=== PATIENT | male | born 1950 | race Caucasian/White ===

== ENCOUNTER → 2023-07-12 07:21 | Outpatient (REF) | payer MEDICARE, SELFPAY ==
[2023-07-12 08:08] LABS: % Basophils 0.4 % (0-2); % Eosinophils 3.7 % (0-6); % Immature Granulocytes 0.2 % (0-0.5); % Lymphocytes 46.3 % (20.5-51.1); % Monocytes 6.7 % (1.7-9.3); % Neutrophils 42.7 % (42.2-75.2); Absolute Eosinophils 0.4 10^3/uL (0-0.7); Absolute Lymphocytes 4.7 10^3/uL (1.2-3.4); Absolute Monocytes 0.7 10^3/uL (0.1-0.6); Absolute Neutrophils 4.3 10^3/uL (1.4-6.5); Hematocrit 43.2 % (39.0-52.0); Hemoglobin 15.6 g/dL (13.0-18.0); Mean Corp Hgb Conc. 36.1 g/dL (33.0-37.0); Mean Corpuscular Hgb 33.2 pg (27.0-31.0); Mean Corpuscular Volume 91.9 fL (80.0-94.0); Mean Platelet Volume 9.6 fL (7.4-10.4); Nucleated Red Blood Cells % 0 % (-); Platelet Count 265 10^3/uL (130-400); Red Cell Dist. Width 12.7 % (11.5-14.5); White Blood Cell Count 10.1 10^3/uL (4.8-10.8)
[2023-07-12 08:44] LABS: Glycohemoglobin (HgbA1c) 7.3 % (4.0-5.6)
[2023-07-12 08:49] LABS: ALT (SGPT) 29 U/L (0-50); AST (SGOT) 31 U/L (17-59); Albumin 4.4 g/dl (3.5-5.0); Alkaline Phosphatase 117 U/L (38-126); Blood Urea Nitrogen 20 mg/dl (9-20); Calcium 10.1 mg/dl (8.4-10.2); Carbon Dioxide 29 mmol/L (22-30); Chloride 101 mmol/L (98-107); Glucose 142 mg/dl (70-99); HDL Cholesterol 45 mg/dl; LDL Cholesterol, Calculated 71 mg/dl; Potassium 4.5 mmol/L (3.5-5.1); Sodium 142 mmol/L (135-145); Total Bilirubin 1.2 mg/dl (0.2-1.3); Total Cholesterol 146 mg/dl (50-199); Total Protein 7.5 g/dl (6.3-8.2); Triglyceride 153 mg/dl (10-149); Very Low Density Lipoprotein 30 mg/dl (0-30); eGFR > 60.00
== END ==
LOC: REG 07:21
PROVIDERS: ATTENDING PHYSICIAN Student in an Organized Health Care Education/Training Program; OTHER PHYSICIAN Internal Medicine Cardiovascular Disease
DX: E11.59 Type 2 diabetes mellitus with other circulatory complications (principal); I10 Essential (primary) hypertension; E78.2 Mixed hyperlipidemia; N40.0 Benign prostatic hyperplasia without lower urinary tract symptoms
CPT/HCPCS: 36415; 80053; 80061; 83036; 84153; 85025

== ENCOUNTER → 2023-07-31 15:14 | Outpatient (REF) | payer MEDICARE, SELFPAY | LOC: MRI 3T 15:14 | PROVIDERS: ATTENDING PHYSICIAN Pain Medicine Interventional Pain Medicine; FAMILY PHYSICIAN Family Medicine | DX: M54.16 Radiculopathy, lumbar region (principal) | CPT/HCPCS: 72148 ==

== ENCOUNTER → 2023-08-14 10:24 | Outpatient (REF) | payer MEDICARE, SELFPAY | LOC: HWRAD 10:24 | PROVIDERS: ATTENDING PHYSICIAN Surgery; FAMILY PHYSICIAN Family Medicine | DX: N40.1 Benign prostatic hyperplasia with lower urinary tract symptoms (principal) | CPT/HCPCS: 76770 ==

== ENCOUNTER → 2023-10-23 08:40 | Outpatient (REF) | payer MEDICARE, SELFPAY | LOC: RAD 08:40 | PROVIDERS: ATTENDING PHYSICIAN Student in an Organized Health Care Education/Training Program; REFERRING PHYSICIAN Internal Medicine Cardiovascular Disease | DX: Z13.6 Encounter for screening for cardiovascular disorders (principal) | CPT/HCPCS: 76770 ==

== ENCOUNTER → 2023-11-07 15:57 | Outpatient (REF) | payer MEDICARE, SELFPAY ==
[2023-11-07 19:48] LABS: Urine Albumin Negative (Neg - Trace); Urine Bilirubin Negative (Negative); Urine Character Clear (Clear); Urine Color Yellow; Urine Glucose Negative (Negative); Urine Ketone Negative (Negative); Urine Leukocyte Negative (Negative); Urine Nitrite Negative (Negative); Urine Occult Blood Negative (Negative); Urine Urobilinogen Negative (Neg - 1+)
== END ==
LOC: REG 15:57
PROVIDERS: ATTENDING PHYSICIAN Surgery; FAMILY PHYSICIAN Student in an Organized Health Care Education/Training Program
DX: N39.0 Urinary tract infection, site not specified (principal)
CPT/HCPCS: 81003; 87086

== ENCOUNTER → 2024-01-13 07:27 | Outpatient (REF) | payer MEDICARE, SELFPAY ==
[2024-01-13 08:48] LABS: % Basophils 0.4 % (0-2); % Eosinophils 5.4 % (0-6); % Immature Granulocytes 0.3 % (0-0.5); % Lymphocytes 37.6 % (20.5-51.1); % Monocytes 7.7 % (1.7-9.3); % Neutrophils 48.6 % (42.2-75.2); Absolute Eosinophils 0.4 10^3/uL (0-0.7); Absolute Lymphocytes 2.9 10^3/uL (1.2-3.4); Absolute Monocytes 0.6 10^3/uL (0.1-0.6); Absolute Neutrophils 3.7 10^3/uL (1.4-6.5); Hematocrit 38.8 % (39.0-52.0); Hemoglobin 14.4 g/dL (13.0-18.0); Mean Corp Hgb Conc. 37.1 g/dL (33.0-37.0); Mean Corpuscular Hgb 33.5 pg (27.0-31.0); Mean Corpuscular Volume 90.2 fL (80.0-94.0); Mean Platelet Volume 9.7 fL (7.4-10.4); Nucleated Red Blood Cells % 0 % (-); Platelet Count 224 10^3/uL (130-400); Red Cell Dist. Width 12.1 % (11.5-14.5); White Blood Cell Count 7.6 10^3/uL (4.8-10.8)
[2024-01-13 09:14] LABS: ALT (SGPT) 20 U/L (0-50); AST (SGOT) 24 U/L (17-59); Albumin 4.2 g/dl (3.5-5.0); Alkaline Phosphatase 109 U/L (38-126); Blood Urea Nitrogen 28 mg/dl (9-20); Calcium 9.6 mg/dl (8.4-10.2); Carbon Dioxide 26 mmol/L (22-30); Chloride 102 mmol/L (98-107); Glucose 128 mg/dl (70-99); HDL Cholesterol 40 mg/dl; LDL Cholesterol, Calculated 76 mg/dl; Potassium 5.2 mmol/L (3.5-5.1); Sodium 137 mmol/L (135-145); Total Bilirubin 0.6 mg/dl (0.2-1.3); Total Cholesterol 135 mg/dl (50-199); Triglyceride 95 mg/dl (10-149); Very Low Density Lipoprotein 19 mg/dl (0-30); eGFR > 60.00
[2024-01-13 10:20] LABS: Glycohemoglobin (HgbA1c) 6.8 % (4.0-5.6)
== END ==
LOC: RAD 07:27
PROVIDERS: ATTENDING PHYSICIAN Student in an Organized Health Care Education/Training Program; REFERRING PHYSICIAN Internal Medicine Cardiovascular Disease
DX: E78.2 Mixed hyperlipidemia (principal); E11.59 Type 2 diabetes mellitus with other circulatory complications; I10 Essential (primary) hypertension; N40.0 Benign prostatic hyperplasia without lower urinary tract symptoms
CPT/HCPCS: 36415; 80053; 80061; 83036; 85025

== ENCOUNTER → 2024-04-26 11:10 | Outpatient (REF) | payer MEDICARE, SELFPAY ==
[2024-04-26 13:51] LABS: Urine Albumin Negative (Neg - Trace); Urine Bilirubin Negative (Negative); Urine Character Clear (Clear); Urine Color Yellow; Urine Glucose Negative (Negative); Urine Ketone Negative (Negative); Urine Leukocyte Negative (Negative); Urine Nitrite Negative (Negative); Urine Occult Blood Negative (Negative); Urine Urobilinogen Negative (Neg - 1+)
== END ==
LOC: RAD 11:10
PROVIDERS: ATTENDING PHYSICIAN Surgery; FAMILY PHYSICIAN Student in an Organized Health Care Education/Training Program
DX: N20.0 Calculus of kidney (principal); N39.0 Urinary tract infection, site not specified
CPT/HCPCS: 74018; 81003; 87086

== ENCOUNTER → 2024-05-11 09:36 | Outpatient (REF) | payer MEDICARE, SELFPAY ==
[2024-05-11 10:12] LABS: % Basophils 0.3 % (0-2); % Eosinophils 4.5 % (0-6); % Immature Granulocytes 0.1 % (0-0.5); % Lymphocytes 39.4 % (20.5-51.1); % Monocytes 7.3 % (1.7-9.3); % Neutrophils 48.4 % (42.2-75.2); Absolute Eosinophils 0.4 10^3/uL (0-0.7); Absolute Lymphocytes 3.5 10^3/uL (1.2-3.4); Absolute Monocytes 0.7 10^3/uL (0.1-0.6); Absolute Neutrophils 4.3 10^3/uL (1.4-6.5); Hematocrit 43.1 % (39.0-52.0); Hemoglobin 15.3 g/dL (13.0-18.0); Mean Corp Hgb Conc. 35.5 g/dL (33.0-37.0); Mean Corpuscular Hgb 32.5 pg (27.0-31.0); Mean Corpuscular Volume 91.5 fL (80.0-94.0); Mean Platelet Volume 9.6 fL (7.4-10.4); Nucleated Red Blood Cells % 0 % (-); Platelet Count 225 10^3/uL (130-400); Red Blood Cell Count 4.71 10^6/uL (4.70-6.10); Red Cell Dist. Width 12.7 % (11.5-14.5); White Blood Cell Count 8.9 10^3/uL (4.8-10.8)
[2024-05-11 11:04] LABS: ALT (SGPT) 24 U/L (0-50); AST (SGOT) 27 U/L (17-59); Albumin 4.7 g/dl (3.5-5.0); Alkaline Phosphatase 110 U/L (38-126); Blood Urea Nitrogen 21 mg/dl (9-20); Calcium 9.6 mg/dl (8.4-10.2); Carbon Dioxide 27 mmol/L (22-30); Chloride 103 mmol/L (98-107); Glucose 143 mg/dl (70-99); Potassium 5.1 mmol/L (3.5-5.1); Sodium 141 mmol/L (135-145); Total Protein 7.6 g/dl (6.3-8.2); eGFR > 60.00
[2024-05-12 21:53] LABS: Beta-2-Microglobulin 2.5 mg/L (<=3.0)
== END ==
LOC: REG 09:36
PROVIDERS: ATTENDING PHYSICIAN Internal Medicine Hematology & Oncology; FAMILY PHYSICIAN Student in an Organized Health Care Education/Training Program; OTHER PHYSICIAN Internal Medicine Cardiovascular Disease
DX: D47.2 Monoclonal gammopathy (principal)
CPT/HCPCS: 36415; 80053; 82232; 82784; 83521; 84155; 84165; 85025; 86334

== ENCOUNTER 2024-05-20 06:14 | Day surgery (SDC) | payer MEDICARE, SELFPAY ==
[2024-05-20 07:19] LABS: Glucose - Point of Care 124 mg/dl (70-99)
== END 2024-05-20 08:43 | disposition home or self-care (01) ==
LOC: GI 06:14
PROVIDERS: ATTENDING PHYSICIAN Internal Medicine; FAMILY PHYSICIAN Student in an Organized Health Care Education/Training Program
DX: Z12.11 Encounter for screening for malignant neoplasm of colon (principal); K57.30 Diverticulosis of large intestine without perforation or abscess without bleeding; K64.9 Unspecified hemorrhoids
CPT/HCPCS: G0121; 82962

== ENCOUNTER 2024-05-21 06:24 | Day surgery (SDC) | payer MEDICARE, SELFPAY ==
[2024-05-21 07:10] LABS: Glucose - Point of Care 128 mg/dl (70-99)
== END 2024-05-21 08:30 | disposition home or self-care (01) ==
LOC: GI 06:24
PROVIDERS: ATTENDING PHYSICIAN Internal Medicine Gastroenterology; FAMILY PHYSICIAN Student in an Organized Health Care Education/Training Program
DX: Z12.11 Encounter for screening for malignant neoplasm of colon (principal); Z86.0100 Personal history of colon polyps, unspecified; K64.8 Other hemorrhoids; K57.30 Diverticulosis of large intestine without perforation or abscess without bleeding
CPT/HCPCS: G0105; 82962

== ENCOUNTER → 2024-06-22 08:46 | Outpatient (REF) | payer MEDICARE, SELFPAY ==
[2024-06-22 10:48] LABS: ALT (SGPT) 21 U/L (0-50); AST (SGOT) 26 U/L (17-59); Albumin 4.9 g/dl (3.5-5.0); Alkaline Phosphatase 102 U/L (38-126); Blood Urea Nitrogen 29 mg/dl (9-20); Calcium 9.5 mg/dl (8.4-10.2); Carbon Dioxide 26 mmol/L (22-30); Chloride 100 mmol/L (98-107); Glucose 145 mg/dl (70-99); HDL Cholesterol 55 mg/dl; LDL Cholesterol, Calculated 79 mg/dl; Potassium 4.8 mmol/L (3.5-5.1); Sodium 139 mmol/L (135-145); Total Bilirubin 1.1 mg/dl (0.2-1.3); Total Cholesterol 161 mg/dl (50-199); Total Protein 7.8 g/dl (6.3-8.2); Triglyceride 138 mg/dl (10-149); Very Low Density Lipoprotein 27 mg/dl (0-30); eGFR > 60.00
[2024-06-22 11:08] LABS: Microalbumin, Random Urine 5.2 mg/dl (0.6-1.7)
[2024-06-22 11:15] LABS: PSA, Total - Screen 2.47 ng/ml (0.0-4.0)
[2024-06-22 12:01] LABS: Glycohemoglobin (HgbA1c) 6.5 % (4.0-5.6)
== END ==
LOC: REG 08:46
PROVIDERS: ATTENDING PHYSICIAN Nurse Practitioner Family; FAMILY PHYSICIAN Student in an Organized Health Care Education/Training Program; OTHER PHYSICIAN Ophthalmology; REFERRING PHYSICIAN Internal Medicine Cardiovascular Disease
DX: E11.65 Type 2 diabetes mellitus with hyperglycemia (principal); E11.59 Type 2 diabetes mellitus with other circulatory complications; E78.2 Mixed hyperlipidemia; Z12.5 Encounter for screening for malignant neoplasm of prostate
CPT/HCPCS: 36415; 80053; 80061; 82043; 83036; G0103

== ENCOUNTER → 2024-12-23 11:06 | Outpatient (REF) | payer MEDICARE, SELFPAY | LOC: RAD 11:06 | PROVIDERS: FAMILY PHYSICIAN Student in an Organized Health Care Education/Training Program | DX: M79.671 Pain in right foot (principal) | CPT/HCPCS: 73630 ==

== ENCOUNTER 2024-12-30 12:55 | Observation (INO) | payer MEDICARE, SELFPAY ==
[2024-12-30] VITALS (7 sets, daily range): BP systolic 114–188; BP diastolic 63–96; PULSE 67–85; BMI 28.7; BMI 29.9
[2024-12-30 11:26] LABS: Hematocrit 41.4 % (39.0-52.0); Hemoglobin 15.2 g/dL (13.0-18.0); Mean Corp Hgb Conc. 36.7 g/dL (33.0-37.0); Mean Corpuscular Volume 89.6 fL (80.0-94.0); Nucleated Red Blood Cells % 0 % (-); Platelet Count 227 10^3/uL (130-400); Red Cell Dist. Width 12.0 % (11.5-14.5)
[2024-12-30 11:34] LABS: INR 1.02; PT 13.7 Sec (11.4-14.6)
[2024-12-30 11:35] LABS: APTT 24.1 Sec (23.4-35.0)
[2024-12-30 11:46] LABS: ALT (SGPT) 17 U/L (0-50); AST (SGOT) 22 U/L (17-59); Albumin 4.9 g/dl (3.5-5.0); Alkaline Phosphatase 95 U/L (38-126); Blood Urea Nitrogen 27 mg/dl (9-20); Calcium 9.3 mg/dl (8.4-10.2); Carbon Dioxide 21 mmol/L (22-30); Chloride 107 mmol/L (98-107); Estimated Creatinine Clearance 58 ml/min; Glucose 155 mg/dl (70-99); Potassium 4.9 mmol/L (3.5-5.1); Sodium 138 mmol/L (135-145); Total Protein 7.9 g/dl (6.3-8.2); eGFR > 60.00
[2024-12-30 11:59] LABS: Troponin I < 0.012 ng/ml
--- NOTE | 2024-12-30 11:59 | CON.NEURO4 ---
Documented by User: Jolly Hernandez NP 12/30/24 13:08
Consultation - Neurology 4
-
CONSULTING PHYSICIAN: Lang Barboza MD
REFERRING PHYSICIAN: ER/Dr. Rea
DICTATED BY: JOSE LUIS Lehman
DATE/TIME OF REQUEST: 12/30/24
DATE/TIME OF CONSULTATION: 12/30/24
Reason for Consultation: Stroke symptoms
History of Present Illness:
This is a 74-year-old right-handed male who has presented to the hospital with report of a left eye vision change and left face/arm sensation change. Patient reports that the left side of his neck has been sore for months. About three weeks ago, he
notes that his neck discomfort spread down his left arm. He also notes having intermittent central chest discomfort for several months. About two days ago, he notes that his left eye vision became blurry. He had a left eye cataract removal in
June 2025 and attributed his new vision change to a cataract issue. This morning (12/30/24) around 0945 he notes that his left face and entire left arm developed a 'tight' sensation. He was also having mild chest discomfort and took a full dose
aspirin prior to heading to the ER for evaluation. CT head, CTA head/neck, and CT perfusion were obtained on arrival and are negative for any acute abnormalities. Blood pressure is elevated at 188/96. He denies any headache, speech/swallowing
difficulty, and weakness. He notes chronic lower back pain with radiation into his groin and urethra. He also notes that he has been feeling tired lately, dizzy upon standing, and having intermittent frontal headaches every few days for a couple of
months.
Past Medical History: HTN, HLD, NIDDM, PVCs, skin cancer, gout, renal calculi, nephrolithiasis, torn rotator cuff, +MGUS
Surgical History: left cataract removal, skin cancer removed from neck, L2-L3 ILESI, dental implant, sinus uplift, lithotripsy
Family History: Brother and Mother- stroke.
Social History: Former smoker.
Allergies: Hayfever, cats.
Home Medications: See below.
Review of Symptoms:
Patient denies any fever, headache, shortness of breath, GI or symptoms.
�Per the HPI.�All systems are reviewed negative except above.
Physical Exam:
The patient is afebrile, abdomen is nondistended, breathing is unlabored, skin is warm and dry, no edema.
NIH Stroke Scale:
I performed the NIH stroke scale on the patient on 12/30/24 at 1210. The patient scored 0 points on the NIH stroke scale assessment, which were assigned as follows: See below.
Neurologic Examination:
The patient is awake, alert and oriented x 3. He is able to follow commands and answer questions appropriately. There is no aphasia or dysarthria. On cranial nerve assessment, pupils are 3 mm bilateral, round and reactive to light and
accommodation. Visual sanchez are full. Extraocular movements are intact. Facial sensations are intact and bilaterally symmetrical, there is no facial asymmetry. Hearing is intact bilaterally to normal conversation volume. Tongue palate and uvula are
midline. Sternocleidomastoid strengths are full bilaterally. Motor strengths are 5/5 bilateral upper and lower extremities on medical research [place] scale. There is no drift or involuntary movement noted. Deep tendon reflexes are 2+ bilateral
upper and lower extremities and Babinski is absent bilaterally. There was no extinction noted on double simultaneous stimulation. Coordination is intact by finger to nose bilaterally.
Lab Results: See below.
Neuro Imaging:
1. CT Head 12/30/24: No acute intracranial abnormality.
2. CTA Head/Neck 12/30/24: No LVO, report pending.
3. CT Perfusion 12/30/24: CBF 0.
Differentials for the patient's presentation include:
1. Left eye vision change, left face/arm sensation change; etiology possibly TIA, small ischemic stroke, hypertensive urgency, or metabolic abnormality.
Patient has the following risk factors for their symptoms: HTN, HLD
IV Tenecteplase/IAT candidacy: Not a candidate due to NIHSS 0, no LVO.
Recommendations:
-Provide clopidogrel 300mg x1 now.
-MRI Brain noncontrast pending.
-Permissive hypertension SBP<220, DBP<120 until 12/31/24 at 0945, then goal normotension.
-LDL goal <70. Lipid panel is pending. Increase home atorvastatin from 20mg to 40mg daily.
-Goal normoglycemia, hbA1c is pending.
-Checking blood work for metabolic abnormalities.
-NIHSS and neurological checks per unit guidelines.
-Provide patient with a stroke education packet.
-PT/OT evaluations.
-DVT prophylaxis.
Discussed patient care with: Dr. Barboza, the patient
Vital Signs and Labs
-
Vital Signs and Labs:
Vital Signs
Temp Pulse Resp BP Pulse Ox
98.3 F 82 19 188/96 97
12/30/24 11:01 12/30/24 11:15 12/30/24 11:15 12/30/24 11:01 12/30/24 11:01
Lab Results
12/30/24 11:18
12/30/24 11:18
PT 13.7 Sec (11.4-14.6) 12/30/24 11:18
INR 1.02 12/30/24 11:18
APTT 24.1 Sec (23.4-35.0) 12/30/24 11:18
Sodium 138 mmol/L (135-145) 12/30/24 11:18
Potassium 4.9 mmol/L (3.5-5.1) 12/30/24 11:18
BUN 27 mg/dl (9-20) H 12/30/24 11:18
Glucose 155 mg/dl (70-99) H 12/30/24 11:18
Calcium 9.3 mg/dl (8.4-10.2) 12/30/24 11:18
Medications
-
Home Medications
�Medication �Instructions �Recorded
Amlodipine Besylate 10 mg PO DAILY 07/29/12
Lipitor: 20 mg PO DAILY 07/29/12
Metformin Extended Release 500 mg PO BID 07/29/12
Ramipril 10 mg PO DAILY 07/29/12
aspirin 325 mg tablet 325 mg PO PRN PRN pain / cp 08/31/15
omeprazole magnesium 20 mg 20 mg PO DAILY ##30 08/31/15
tablet,delayed release (Prilosec
OTC)
NIH Stroke Score
Subsequent NIH Scale
Date of Subsequent NIH Scale: 12/30/24
Time of Subsequent NIH Scale: 12:10
NIH Stroke Score
Level of Consciousness: 0 - Alert
LOC Questions: 0-Answers both correctly
LOC Commands: 0-Performs both correctly
Best Horizontal Gaze: 0-Normal
Visual Sanchez: 0=Normal, no visual loss
Facial Palsy: 0=Normal, symmetrical
Motor - Right Arm: 0=No drift 10 seconds
Motor - Left Arm: 0=No drift 10 seconds
Motor - Right Le-No drift 5 seconds
Motor - Left Le-No drift 5 seconds
Limb Ataxia: 0-Absent
Sensation: 0-Normal
Best Language: 0-No aphasia
Dysarthria: 0-Normal
Extinction and Inattention: 0-No abnormality
NIH Total Score:: 0
Modified [place] (mRS) Score
Modified [place] Scale (mRS): No significant disability. Able to carry out usual activities.
Score: 1
Alteplase Contraindication
Inclusion and Exclusion criteria reviewed: Yes

Documented by User: Lang Barboza MD 12/30/24 13:55
NIH Stroke Score
NIH Stroke Score
NIH Total Score:: 0
Modified [place] (mRS) Score
Score: 1
--- NOTE | 2024-12-30 12:28 | HPS.HSE ---
Family Physician
-
Family Physician: Kya Monique
Chief Complaint
-
left arm weakness
History of Present Illness
[id number] with past medical history for BPH, chronic prostatitis, hypertension presented to us with left facial numbness, left eye blurry vision, left arm weakness while he was shopping. His symptoms slowly getting better. Patient denies any
headache, dizzy or syncope. Patient denied any fever, chills, cough, congestion. Patient denies any abdominal pain, nausea, vomiting or diarrhea. Patient denies dysuria hematuria.
Head CT with no acute findings. Patient received a dose of Plavix in the ER. Admitted for further management
Medical History
Past Medical History
Past Medical History: Reports Other
Additional Past Medical History:
BPH
Chronic prostatitis
Hypertension
Nephrolithiasis
Lipidemia
Type 2 diabetes
MGUS
Skin cancer
Past Surgical History: Reports Other
Additional Past Surgical History:
Lithotripsy
Sinus of lip
Dental implant
Skin cancer removed from the neck
Left eye cataract surgery
Social History
Tobacco: Non-smoker
Alcohol: None
Drug: None
Personal:
Living: With Family
Family History
Family History: Not pertinent
Allergies / Home Medications
Allergies reflects when Allergies were last updated in [facility].
Home Medications with original date entered in [facility]
Allergy/Medication List:
Allergies
Allergy/AdvReac Type Severity Reaction Status Date / Time
Cats Allergy Unknown Unknown Uncoded 08/31/15 12:08
Hayfever Allergy Unknown Unknown Uncoded 08/31/15 12:08
Home Medications
Amlodipine Besylate 10 mg PO DAILY 07/29/12
Lipitor: 20 mg PO DAILY 07/29/12
Metformin Extended Release 500 mg PO BID 07/29/12
Ramipril 10 mg PO DAILY 07/29/12
aspirin 325 mg tablet 325 mg PO PRN PRN pain / cp 08/31/15
omeprazole magnesium 20 mg tablet,delayed release (Prilosec OTC) 20 mg PO DAILY ##30 08/31/15
Review of Systems
-
Constitutional: Reports No Symptoms
EENT: Reports No Symptoms
Respiratory: Reports No Symptoms
Cardiac: Reports No Symptoms
Abdomen/GI: Reports No Symptoms
: Reports No Symptoms
Musculoskeletal: Reports No Symptoms
Skin: Reports No Symptoms
Neurological: Reports Weakness, Numbness and Other (Left eye blurry vision)
Endocrine: Reports No Symptoms
Hematologic/Lymphatic: Reports No Symptoms
Psych: Reports No Symptoms
Physical Exam
Vital Signs
Vital Signs
Temp Pulse Resp BP Pulse Ox
98.3 F 82 19 188/96 97
12/30/24 11:01 12/30/24 11:15 12/30/24 11:15 12/30/24 11:01 12/30/24 11:01
Physical Exam
General: Well Developed, Well Nourished and No Apparent Distress
HEENT: NormoCephalic, Moist mucous membranes and Atraumatic
Respiratory: Clear
Cardiac: S1/S2 and Regular Rhythm; No Murmur or Rub
GI: Soft, Non Tender, Non Distended and Normal Bowel Sounds; No Organomegaly
Rectal: Deferred by Provider
Musculoskeletal: No Clubbing, No Cyanosis and No Edema
Skin: No Rash
Neuro: Nonfocal/grossly intact and Other (Left arm weak)
Laboratory Results
-
12/30/24 11:18
12/30/24 11:18
Laboratory Results
PT 13.7 Sec (11.4-14.6) 12/30/24 11:18
INR 1.02 12/30/24 11:18
APTT 24.1 Sec (23.4-35.0) 12/30/24 11:18
Total Bilirubin 1.0 mg/dl (0.2-1.3) 12/30/24 11:18
AST 22 U/L (17-59) 12/30/24 11:18
ALT 17 U/L (0-50) 12/30/24 11:18
Alkaline Phosphatase 95 U/L (38-126) 12/30/24 11:18
Troponin I < 0.012 ng/ml 12/30/24 11:18
Data Reviewed
-
CT Scan: Report Reviewed by me
Lab Data: Labs Reviewed by me
Impression/Plan
-
# CVA versus TIA
- Head CT negative
- Head and neck CTA pending
- MRI pending
- Plavix and aspirin
- Obtain A1c, lipid profile
- PT/OT
-obtain ECHO.
- Neurology consult
#essential HTN
-hold Norvasc and ramipril to allow permissive HTN.
#type 2 DM
-sliding scale
-CHO diet
#DVT prophylaxis
-scd
#CODE status
-full code
--- NOTE | 2024-12-30 12:29 | ED.CVA ---
History of Present Illness
General
Chief Complaint: CVA/TIA Symptoms
Source: patient
Exam Limitations: none
Time Seen by Provider: 12/30/24 11:09
Nursing documentation reviewed up to this point in time: agreed with
Onset of Stroke Symptoms
Onset of symptoms known: Yes
Date of onset of symptoms: 12/26/24
History of Present Illness
History of Present Illness:
Note:
CHIEF COMPLAINT(S)
Facial tightness and left arm weakness.
HISTORY OF PRESENT ILLNESS
The patient is a 74-year-old male presenting with concerns about tightness in the left arm and facial changes. He reports that the tightness in his left arm has been intermittent over the past few weeks but significantly worsened today.
Additionally, today he experienced noticeable changes on the left side of his face, which prompted greater concern. The facial symptoms began today at 9:45 AM. He also noted blurriness in his left eye for a few days, with a history of cataract
surgery a couple of months ago. Minor chest pain was noted since this morning. The patient took aspirin at 10:30 AM in response to these symptoms.
The patient denies a history of atrial fibrillation or significant heart problems, though mentions a past history of some cardiac evaluations (possibly PVCs). He does not report severe chest pain, just minor discomfort experienced since this
morning. He has also endured painful gout in the past two weeks and takes colchicine for it. Additionally, the patient manages diabetes with metformin.
PHYSICAL EXAM
- General: There does not appear to be acute distress noted.
- Head, Ears, Eyes, Nose, and Throat: No facial palsy noted, extraocular muscles are intact, pupils are equal, round, and reactive to light and accommodation.
- Neck: No jugular venous distention or cervical spine tenderness.
- Cardiovascular: Heart sounds S1, S2 present, no murmurs, normal rate and rhythm.
- Pulmonary: Lungs clear bilaterally.
- Abdomen: Non-tender, no rebound tenderness, no guarding.
- Extremities: No edema, full range of motion in all extremities.
- Neurologic: No focal deficits, no appreciable neurologic deficits, cranial nerves II-XII intact.
PLAN
1. Obtain an Electrocardiogram (EKG).
2. Perform a Computed Tomography (CT) scan of the head.
3. Conduct blood tests.
DIFFERENTIAL DIAGNOSIS
The Differential Diagnosis includes, in no particular order and is not limited to:
1. Transient ischemic attack
2. Stroke
3. [place] Palsy
4. Diabetic neuropathy
5. Cardiac arrhythmia
6. Temporal arteritis
7. Migraine with aura
8. Multiple sclerosis
9. Peripheral artery disease
10. Labyrinthitis
CARE-UPDATE
12/30/24 - 12:30
The neurology oracle consultant recommends admission for further workup to differentiate between a Cerebrovascular Accident (CVA) and a Transient Ischemic Attack (TIA). Oral plavix treatment has been initiated. There is currently no indication for
thrombolytic therapy (TNK) or intra-arterial thrombectomy (IAT). The patient will be admitted under the hospitalist service for continued monitoring and management.
Disposition:
SUMMARY OF ENCOUNTER
The patient is a 74-year-old male presenting to the emergency department with facial tightness, left arm weakness, and blurriness in the left eye. Symptoms have been intermittent over recent weeks but worsened notably today, alongside minor chest
pain noted earlier in the morning. These symptoms raised concerns for potential cerebrovascular events. An Electrocardiogram (EKG) and Computed Tomography (CT) scan of the head were ordered along with blood tests to further evaluate the condition.
Aspirin was administered after the onset of symptoms. Differential diagnosis considered conditions such as transient ischemic attack, stroke, and cardiac arrhythmias among others.
DISPOSITION
Admit to hospitalist service for continued monitoring and further workup to differentiate between a Cerebrovascular Accident (CVA) and a Transient Ischemic Attack (TIA).
ASSESSMENT
The patient presents with signs consistent with a possible transient ischemic attack, with consideration for alternative diagnoses such as stroke or cardiac arrhythmia.
PLAN
1. Continue monitoring for stroke symptoms under hospitalist service.
2. Further investigate cerebrovascular causes for symptoms.
3. Oral plavix treatment has been initiated for prophylactic measures.
MANAGEMENT OF THE PATIENTS CARE WAS DISCUSSED WITH
Consultation with neurology has led to recommendations for hospital admission for detailed workup distinguishing CVA from TIA.
MEDICATION RECONCILIATION
Aspirin administered upon presentation of symptoms.
MEDICAL DECISION MAKING
-Complexity of Data Reviewed: Chronic conditions affecting care include diabetes and gout. Differential diagnoses considered include transient ischemic attack, stroke, cardiac arrhythmia, and diabetic neuropathy among others.
-Data:
Category 1
My independent interpretation of the EKG shows normal rate and rhythm. The CT scan of the head is being utilized for ruling out immediate threats, pending official radiology report.
Category 2
Input from neurology department led to decision for patient admission.
-Risk:
There is a significant risk of complications due to presenting symptoms potentially indicative of a cerebrovascular event. Hospitalization is warranted for thorough evaluation and management.
DIAGNOSIS
Transient Ischemic Attack (TIA) suspected, code G45.9
Past History
Past History
ED Past Medical History: HTN, NIDDM and Other ( stones x2,)
Social History
Tobacco: Former smoker
Alcohol: Occasional
Personal: Single (Common law marrage)
Living: with family
Family History
Family History: Other (Coronary artery disease, diabetes, stroke)
Phy Exam
Physical Exam
Physical Exam:
.
Scores
NIH Stroke Score
Level of Consciousness: 0 - Alert
LOC Questions: 0-Answers both correctly
LOC Commands: 0-Performs both correctly
Best Horizontal Gaze: 0-Normal
Visual Sanchez: 0=Normal, no visual loss
Facial Palsy: 0=Normal, symmetrical
Motor - Right Arm: 0=No drift 10 seconds
Motor - Left Arm: 0=No drift 10 seconds
Motor - Right Le-No drift 5 seconds
Motor - Left Le-No drift 5 seconds
Limb Ataxia: 0-Absent
Sensation: 0-Normal
Best Language: 0-No aphasia
Dysarthria: 0-Normal
Extinction and Inattention: 0-No abnormality
NIH Total Score:: 0
Course
Orders/Labs/Results
Orders:
Orders
12/30/24 Breakfast
2000 calorie (17 carb) Diabetic
At Your Request: Full Participation
12/30/24 11:16
Electrocardiogram (*1) Stat
Reason for Study: Other
Other Reason for Exam: chest pain
Cardiac Monitoring- Treatment ONCE
EKG- Treatment ONCE
IV Insert/Care/Rem.- Treatment PRN
12/30/24 11:17
CT Head W/o Iv Contrast Urgent
Comment:
Reason For Exam: left facial numbness, left arm numbness, left eye
12/30/24 11:18
Complete Blood Count/With Diff Urgent
Comprehensive Metabolic Panel Urgent
Erythrocyte Sed Rate Urgent
Comment: ADD ON
Ferritin Urgent
Comment: ADD ON
Folate Urgent
Comment: ADD ON
PTT Urgent
Prothrombin Time Urgent
TSH Reflex To Free T4 Urgent
Comment: ADD ON
Troponin I Urgent
Vitamin B12 Urgent
Comment: ADD ON
12/30/24 11:42
CT Head & Neck Angio W/wo IV Urgent
Comment:
Reason For Exam: left side numbness, left facial numbness
12/30/24 11:43
CT Brain Perfusion Urgent
Comment:
Reason For Exam: left side numbness, left facial numbness
12/30/24 12:25
MR Brain Without Contrast Routine
Comment:
Reason For Exam: left eye vision change, L sided sens change/weakne
Recent pill cam endoscopy?: No
12/30/24 12:26
Clopidogrel Bisulfate [Plavix] 300 mg PO NOW STA
12/30/24 12:42
Admit/Transfer Patient As Directed
Co-Sign Provider:
Level of Care: Observation services
Assign to:: Telemetry
Physician / Group: karen
Diagnosis: TIA
Reason for Telemetry: CVA/TIA
Date to Stop Telemetry: 01/02/25
Time to Stop Telemetry: 11:00
12/30/24 12:43
Code Status As Directed
Resuscitation Status: Full Code
PRN Pain Medication Management As Directed
May give lesser potent ordered pain med per pt: Yes
preference::
Protocol:: Medication orders for pain may be administered in a
manner that supports deferring to patient preference
when the pt is:
- Requesting an ordered lesser potent pain medication.
Least to most potent pain medications are defined
as: acetaminophen < NSAID < tramadol < opioids
(morphine, oxycodone, hydromorphone).
- Requesting a lesser dose of the same medication IF
ORDERED.
- Requesting a less intrusive route of administration
if both routes are prescribed by the provider (PO <
IV).
12/30/24 14:53
Acetaminophen [Tylenol/Feverall] 650 mg RECTAL Q4HPRN PRN
Acetaminophen [Tylenol] 650 mg PO Q4HPRN PRN
Dextrose 50%-Water [Dextrose 50% Syringe] 12.5 grams IV [id number] PRN
Glucagon [GlucaGen] 1 mg IM PRN PRN
12/30/24 14:53
Case Management Consult ONCE
Case Management Consult: Discharge Planning
Comment: stroke/tia
DIETARY IP CONSULT Routine
Reason for Consult: stroke/TIA
NEUROLOGY CONSULT Urgent
Consulting Provider: Lang Barboza
Was physician already notified: Yes
Mechanical Technical Service Specialist Urgent
Activity As Directed
Activity Level: As Tolerated
Bedside Glucose Monitoring As Directed
Frequency: AC&HS
Additional Instructions:: Change to q6h if pt on TPN, tube feeding or not eating
NIH Stroke Scale As Directed
Directions: Per protocol
Comment: every shift and with any change in condition or mental status
Neurological Checks As Directed
Frequency: q4h
Additional Instructions:: q4h x 24h upon admission to the floor, then qshift & with any change in condition
and mental status
Patient Education As Directed
Type: Stroke education packet
Comment: provide to patient and family
Pneumatic Compression Sleeves As Directed
Type: Thigh high
Vital Signs As Directed
Frequency: Per unit guidelines
Ot Eval And Treat Routine
Pt Eval And Treat Routine
Activity Level: As Tolerated
Speech Therapy Eval & Treat Routine
DX Deep Vein Thrombosis Video Routine
12/30/24 16:30
Insulin Aspart Corrective Low [Novolog Flexpen-Low Resistance] See Protocol SC AC
12/30/24 22:00
Atorvastatin [Lipitor] 20 mg PO HS
12/31/24 05:07
Cardiovascular Evaluation IN AM
Glycohemoglobin (HgbA1c) IN AM
12/31/24 08:00
Allopurinol [Zyloprim] 100 mg PO DAILY
Aspirin Chewable [Low Strength Aspirin] 81 mg PO DAILY
Clopidogrel Bisulfate [Plavix] 75 mg PO DAILY
01/02/25 11:00
DC Protocol for Telemetry ONCE
Abnormal Lab Results
12/30/24
11:18
RBC 4.62 L 10^6/uL
(4.70-6.10)
MCH 32.9 H pg
(27.0-31.0)
Absolute Lymphs (auto) 4.1 H 10^3/uL
(1.2-3.4)
Absolute Monos (auto) 0.8 H 10^3/uL
(0.1-0.6)
Carbon Dioxide 21 L mmol/L
(22-30)
BUN 27 H mg/dl
(9-20)
Glucose 155 H mg/dl
(70-99)
12/30/24 11:18
12/30/24 11:18
Vital Signs
Initial and Last Documented VS:
Initial Vital Signs
Temp Pulse Resp BP Pulse Ox
98.3 F 90 16 188/96 97
12/30/24 11:01 12/30/24 11:01 12/30/24 11:01 12/30/24 11:01 12/30/24 11:01
Last Documented Vital Signs
Temp Pulse Resp BP Pulse Ox
98.6 F 79 16 128/76 97
12/31/24 14:58 12/31/24 14:58 12/31/24 14:58 12/31/24 14:58 12/31/24 14:58
*Pulse Oximetry
SaO2: 97
Oxygen Mode of Delivery: Room air
Patient hypoxic: no
*Critical Care Note
Total Time (30-74mins, 75-104mins- exclusive of procedures): Not Applicable
ED Attending Note
-
Portions of this chart may have been created with voice recognition software.� Occasional wrong word or��sound alike� substitutions may have occurred due to the inherent limitations of voice recognition software.
Discharge Plan
Departure
Patient Disposition: Admit
Date of Disposition: 12/30/24
Time of Disposition: 12:28
Admit to: Telemetry
Presentation/result/management discussed w/ accepting MD/DO: Hospitalist
Patient with high blood pressure during this ER visit?: Yes
Condition: Fair
Discharge Problem:
Acute CVA (cerebrovascular accident)
Interventions
Interventions:
*Risk Screen - Suicide Last Done: 12/30/24 11:01
*General Assessment Last Done: 12/30/24 11:01
*Neglect/Abuse Screening Last Done: 12/30/24 11:01
*ED- Fall Risk Assessment Last Done: 12/30/24 11:01
*ED COVID-19 Vaccine History Last Done: 12/30/24 11:01
*Nursing Disposition Last Done: 12/30/24 13:44
ED- Pulmonary Assessment Last Done: 12/30/24 11:21
ED- Neurological Assessment Last Done: 12/30/24 11:21
ED- Cardiac Assessment Last Done: 12/30/24 11:21
ED Swallowing Screen Last Done: 12/30/24 11:21
Discharge Date and Time
Discharge Date/Time: 12/30/24 14:46
--- NOTE | 2024-12-30 13:12 | W.PN.UPDATE ---
Update Note
Progress Note Update
This is an an addendum to H&P written by TEACHER EDUCATION DIRECTOR America Branham
I saw and examined the patient.
The TEACHER EDUCATION DIRECTOR's note was reviewed and I agree with the note.
Comment:
Mr. Basilio Rivera is a 74 yo man with hx BPH, HTN, MGUS, nephrolithiasis presents to the ER with onset of left facial and arm tightness that started around 9:45 this morning. At the time of my interview, patient stating that symptoms largely
resolved although has some left sided neck soreness that is new. He denies chest pain.
Triage VS: T 98.3, P 90, RR 16, BP 188/96, SpO2 97%
Exam: MEG, no facial asymmetry; CV: S1, S2, RRR; Chest clear; 5/5 strength upper and lower extremities, sensation grossly intact, no pronator drift.
LABS: WBC 10.7, Hg 15.2, PLT 227, Na 138, K+ 4.9, BUN 27, Cr 1.0, Glucose 155, liver enzymes WNL, Trop negative
HEAD CT
IMPRESSION:
No acute intracranial abnormality.
HEAD/NECK CTA
IMPRESSION:
1. No acute findings. No large vessel occlusions or dissections appreciated.
2. Moderate atherosclerotic disease within both carotid bulbs and proximal ICAs. Any stenosis is less than 50%.\\
3. Additional findings above.
TIA versus CVA
-patient took aspirin at home, given Plavix 300mg PO x 1 now
-Brain MRI pending
-admit to telemetry
-permissive HTN, hold ACCOUNT COLLECTOR amlodipine, Ramipril. Ok to resume post 10AM tomorrow
-continue ACCOUNT COLLECTOR aspirin 81mg PO QD with addition of plavix
-CTA results above
-TTE ordered
-F/U A1c, Lipid panel
-neuro checks
-PT/OT
[2024-12-30] MEDS: PLAVIX 300 MG PO (13:27)
[2024-12-30 14:16] LABS: Ferritin 88.5 ng/ml (17.9-464.0)
[2024-12-30 14:47] LABS: Folate 10.8 ng/ml (2.76-20); Vitamin B12 466 pg/ml (239-931)
--- NOTE | 2024-12-30 16:14 | PTOTSP ---
Speech Therapy Evaluation:
Oropharyngeal swallow appears WFL at bedside. No predisposing risk factors of dysphagia. Precipitating risk factor includes c/f acute CVA, however MRI negative. Pt without dysphagia hx, WBC WNL, afebrile, on room air, and passed 3oz swallow screen.
Clinical concern for aspiration low at this time.
Recommend:
1. Regular solids and thin liquids
2. Medications as tolerated
3. General aspiration precautions
4. BAKER HEAD to s/o - please reconsult if indicated
[2024-12-30 16:51] LABS: Glucose - Point of Care 157 mg/dl (70-99)
[2024-12-30] MEDS: NOVOLOG FLEXPEN-LOW RESISTANCE 1 UNITS SC (16:53)
--- NOTE | 2024-12-30 17:06 | PTCARENOTE ---
Pt arrived to unit from ED around 1530. He was able to ambulate from stretcher to bed in room with no assistance. NIH/Neuro check completed and charted at at 1600. Pt oriented to staff and room. Dinner ordered. All needs met at this time. VSS. Plan
of care ongoing.
[2024-12-30 21:08] LABS: Glucose - Point of Care 112 mg/dl (70-99)
[2024-12-30] MEDS: LIPITOR 20 MG PO (21:32)
[2024-12-31 03:25] VITALS: BP 141/71
[2024-12-31 06:14] LABS: HDL Cholesterol 41 mg/dl; LDL Cholesterol, Calculated 66 mg/dl; Very Low Density Lipoprotein 19 mg/dl (0-30)
[2024-12-31 07:41] VITALS: BP 146/77
[2024-12-31 07:52] LABS: Glucose - Point of Care 140 mg/dl (70-99)
[2024-12-31 07:58] LABS: Glycohemoglobin (HgbA1c) 7.1 % (4.0-5.6)
[2024-12-31] MEDS: NOVOLOG FLEXPEN-LOW RESISTANCE SC ×2 (08:33→12:08)
[2024-12-31] MEDS: LOW STRENGTH ASPIRIN 81 MG PO (08:34)
[2024-12-31] MEDS: PLAVIX 75 MG PO (08:34)
[2024-12-31] MEDS: ZYLOPRIM 100 MG PO (08:34)
--- NOTE | 2024-12-31 08:55 | W.PN.HOSP.TC ---
Addendum entered and electronically signed by Jacklyn Treviño MD 12/31/24 16:11:
I saw and evaluated the patient independently. I reviewed the resident�s note and agree with findings and plan as documented by Albert.
GENERAL: well developed, well nourished, male in no apparent distress
HEENT: NC/AT
HEART: regular rate and rhythm, +S1, +S2
LUNGS : clear to auscultation bilaterally
ABDOM: soft, nontender, nondistended, + bowel sounds
EXT: no cyanosis, clubbing, or edema
NEUROLOGIC: grossly intact
TIA versus migraine with aura-- Head CT negative, head and neck CTA less than 50% stenosis bilaterally, brain perfusion CT and MRI all neg for CVA--ECHO WNL-- LDL 66, continue home Lipitor 20 goal < 70-- aspirin and Plavix for 21 days, followed by
asa alone--apprec neuro--migraine with aura as imaging findings were negative-- Prochlorperazine 10 mg as needed by mouth for head discomfort control per neurology
Essential HTN--Permissive HTN for possible CVS and BP meds held
DMII--HgA1c 7.1 - controlled--Discharge on home metformin
HLD--LDL 66 at goal continue atorvastatin 20
Gout--Cont allopurinol
Hx BPH
Hx MGUS
Hx Chronic prostatitis
Hx Nephrolithiasis
Hx skin cancer
Full Code
SCD
Original Note:
Today's Communication/Plan
-
Discharge on plavix for 21 days, asa indefinitely and prochlorperazine 10mg as needed for head discomfort with f/u with neurology
Assessment / Plan
Assessment / Plan
74-year-old male with past medical history of hypertension, MGUS, type 2 diabetes, BPH, chronic prostatitis, hyperlipidemia, left nephrolithiasis, gout presented to the ED with facial numbness, left eye blurry vision, left arm weakness while
shopping. Workup for vascular event done and imaging inconclusive for acute etiology. Likely TIA versus migraine with aura.
TIA versus migraine with aura
-- Head CT negative, head and neck CTA less than 50% stenosis bilaterally, brain perfusion CT done as well
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
-- EKG in sinus rhythm, echo 65 to 70% ejection fraction
-- Hemoglobin A1c 7.1, controlled
-- LDL 66, continue home Lipitor 20 goal < 70
-- Loading doses of aspirin and Plavix given in ED
-- Neurology consulted and suspect migraine with aura as imaging findings were negative. NIH stroke score 0.
-- Prochlorperazine 10 mg as needed by mouth for head discomfort control per neurology
-- Discharged with Plavix for next 21 days and aspirin 81 indefinitely
HTN
--Permissive HTN for possible CVS and BP meds held
--Discharge with home meds
DMII
--HgA1c 7.1 - controlled
--Discharge on home metformin
HLD
--LDL 66 at goal continue atorvastatin 20
Gout
--Cont allopurinol
Hx BPH
Hx MGUS
Hx Chronic prostatitis
Hx Nephrolithiasis
Hx skin cancer
Full Code
SCD
Anticipated Discharge: Today
Subjective/Interval History
-
Date of Service: December 31, 2024
Still complaning of some left arm numbness and tingling, but better than before. Face numbness and vision have significantly improved.
Objective Data
-
Vital Signs:
Vital Signs
Temp Pulse Resp BP Pulse Ox
97.8 F 70 16 146/77 96
12/31/24 07:41 12/31/24 07:41 12/31/24 07:41 12/31/24 07:41 12/31/24 07:41
I&O
12/30/24 12/31/24 01/01/25
06:59 06:59 06:59
Intake Total 900 / 900
Balance 900 / 900
Review of Systems
-
History Source: Patient
EENT: Reports No Symptoms Reported
Respiratory: Reports No Symptoms
Cardiac: Reports No Symptoms
Abdomen/GI: Reports No Symptoms
Genitourinary: Reports No Symptoms
Neuro: Reports Other (Some numbness and tingling in left arm, improved from prior )
Physical Exam
-
General: No Apparent Distress and Comfortable
HEENT: Normocephalic
Respiratory: Clear to Auscultation
Cardiac: Regular Rhythm and S1/S2
GI: Soft, Nontender, Nondistended and Normal Bowel Sounds
Musculoskeletal: No Cyanosis and No Edema
Neuro: AO x 3, No Motor Deficits, Nonfocal/Grossly Intact and Central Nerve's Intact
Psych: Calm
--- NOTE | 2024-12-31 09:34 | W.PN.NEURO.1 ---
Today's Communication / Plan
-
Provide prochlorperazine 10 mg by mouth for head discomfort control
Continue aspirin due to previous lacunar stroke
Continue atorvastatin at current level of 20 mg nightly
May need additional imaging if patient has persistent head discomfort and left arm discomfort which does not resolve by repeating MRI of brain with contrast after an additional 72 hours
Neuro Assessment/Plan
Assessment
Neuro Imaging:
1. CT Head 12/30/24: No acute intracranial abnormality.
2. CTA Head/Neck 12/30/24: No LVO, report pending.
3. CT Perfusion 12/30/24: CBF 0.
MRI of brain was unremarkable except old left cerebellar lacunar infarct
Differentials for the patient's presentation include:
1. Left eye vision change, left face/arm sensation change; unlikely TIA due to persistence of symptoms. Most likely diagnosis at this time is migraine with aura
Plan
Provide prochlorperazine 10 mg by mouth for head discomfort control
Continue aspirin due to previous lacunar stroke
Continue atorvastatin at current level of 20 mg nightly
May need additional imaging if patient has persistent head discomfort and left arm discomfort which does not resolve by repeating MRI of brain with contrast after an additional 72 hours
Will follow as outpatient.
Subjective/Objective
Subjective Data
Date of Service: December 31, 2024
Continued symptoms in left side of head and left arm distally. No further blurred vision
Objective Data
Vital Signs
Temp Pulse Resp BP Pulse Ox
36.6 C 70 16 146/77 96
12/31/24 07:41 12/31/24 07:41 12/31/24 07:41 12/31/24 07:41 12/31/24 07:41
Lab Results
12/30/24 11:18
12/30/24 11:18
PT 13.7 Sec (11.4-14.6) 12/30/24 11:18
INR 1.02 12/30/24 11:18
APTT 24.1 Sec (23.4-35.0) 12/30/24 11:18
Sodium 138 mmol/L (135-145) 12/30/24 11:18
Potassium 4.9 mmol/L (3.5-5.1) 12/30/24 11:18
BUN 27 mg/dl (9-20) H 12/30/24 11:18
Glucose 155 mg/dl (70-99) H 12/30/24 11:18
Calcium 9.3 mg/dl (8.4-10.2) 12/30/24 11:18
LDL Cholesterol, Calc 66 mg/dl 12/31/24 05:07
Vitamin B12 466 pg/ml (239-931) 12/30/24 11:18
Patient Allergies
Cats Allergy (Unknown, Uncoded 08/31/15 12:08)
Unknown
Hayfever Allergy (Unknown, Uncoded 08/31/15 12:08)
Unknown
Review of Systems
-
History Source: Patient
All other systems: Reviewed and negative
EENT: Negative Swallowing Difficulty
Musculoskeletal: Muscle Pain
Neuro: Headache (Left side of head); Negative Dizzy
Physical Exam
-
General: No Apparent Distress and Appears Stated Age
Eyes: Round OU, [place] Conjunctivae and No Ptosis
HEENT: Anicteric and Moist Mucous Membranes
Neck: Full Range of Motion
Respiratory: No Dyspnea
Cardiac: No JVD
GI: Non-distended
Skin: Unremarkable
Extremities: No Clubbing, No Cyanosis and No Edema
Psych: Negative Intact Judgement/Insight
Extended Neurological Exam
Mood & Affect: Mood Unremarkable and Affect Unremarkable
Attention Span & Concentration: Awake, Alert, Interactive and Other (No difficulty with single step requests)
Memory: Unremarkable
Tremor: Hand Tremor Absent and Head Tremor Absent
Speech: Quality Unremarkable and Quantity Unremarkable
Cranial Nerve II: Left Eye: Pupillary Size Unremarkable and Visual Sanchez Grossly Intact
Cranial Nerve II: Right Eye: Pupillary Size Unremarkable and Visual Sanchez Grossly Intact
Cranial Nerves III, IV, : Extraocular Movement: Grossly Intact
Cranial Nerve VII: Facial Symmetry: Normal Facial Symmetry
Cranial Nerve VIII: Hearing: Unremarkable Hearing to Normal Conversational Volume
Cranial Nerve XI: Shoulder Shrug: Unremarkable
Muscle Strength, Overall: Full in Upper Extremities
Muscle Bulk & Tone: Bulk Unremarkable and Tone Unremarkable
Pronator Drift: No Drift in Upper Extremities
Touch Sensation: Unremarkable
Coordination: [id number] Testing Unremarkable
Data Reviewed
-
MRI Head: Report Reviewed
Labs: Report Reviewed
Reviewed with: Physician, Nurse Practioner and Patient
Old Records: Summarized
Past History
Past History
ED Past Medical History: Cancer (melanoma on neck 2014), HTN, NIDDM and Other ( stones x2, gout)
ED Past Surgical History: Other (sinus surgery, nephrolithiasis surgical removal)
Social History
Tobacco: Former smoker
Alcohol: Occasional
Personal: Single (Common law marrage)
Living: with family
Family History
Family History: Other (Coronary artery disease, diabetes, stroke)
Medications
-
Medications:
Generic Name Dose Route Start Last Admin
Trade Name Freq PRN Reason Stop Dose Admin
Acetaminophen 650 mg 12/30/24 14:53
Acetaminophen 650 Mg Rectal Suppository RECTAL 01/27/25 14:52
Q4HPRN PRN
HWANG, mild pain, or temp >100.4F
Acetaminophen 650 mg 12/30/24 14:53
Acetaminophen 325 Mg Tablet PO 01/27/25 14:52
Q4HPRN PRN
HWANG, mild pain, or temp >100.4F
Allopurinol 100 mg 12/31/24 08:00 12/31/24 08:34
Allopurinol 100 Mg Tablet PO 01/28/25 07:59 100 mg
DAILY PARISA Administration
Aspirin 81 mg 12/31/24 08:00 12/31/24 08:34
Aspirin 81 Mg Chewable Tablet PO 01/28/25 07:59 81 mg
DAILY PARISA Administration
Atorvastatin Calcium 20 mg 12/30/24 22:00 12/30/24 21:32
Atorvastatin (Lipitor) 20 Mg Tablet PO 01/27/25 21:59 20 mg
HS PARISA Administration
Clopidogrel Bisulfate 75 mg 12/31/24 08:00 12/31/24 08:34
Clopidogrel 75 Mg Tablet PO 01/28/25 07:59 75 mg
DAILY PARISA Administration
Dextrose 12.5 grams 12/30/24 14:53
Dextrose 50% (0.5 Grams/Ml) 50 Ml Syringe IV 01/27/25 14:52
[id number] PRN
hypoglycemia
Protocol
Glucagon 1 mg 12/30/24 14:53
Glucagon 1 Mg Vial IM 01/27/25 14:52
PRN PRN
hypoglycemia
Protocol
Insulin Aspart 0 units 12/30/24 16:30 12/31/24 08:33
Insulin Aspart Low Resistance 300 Units/3 Ml Pen.Injctr SC 01/27/25 16:29 Not Given
AC PARISA
Protocol
Sodium Chloride 0 flush 12/30/24 16:00
Sodium Chloride 0.9% (Flush) Syringe IV 01/27/25 15:59
PER PROTOCOL PARISA
[2024-12-31 09:56] VITALS: BP 139/71; PULSE 65; O2SAT 94
--- NOTE | 2024-12-31 10:01 | PTOTSP ---
pt currently requires supervision to no assistance to complete simple ADLs, functional transfers, ambulation. pt demonstrates no overt deficits regarding self care or functional ability. no acute OT needs identified. will sign off.
[2024-12-31] MEDS: COMPAZINE 10 MG PO (11:16)
[2024-12-31 11:44] VITALS: BP 135/72
[2024-12-31 11:46] VITALS: BP 121/81; BP 128/77; BP 135/72; PULSE 63; PULSE 68; PULSE 79
[2024-12-31 11:51] LABS: Glucose - Point of Care 143 mg/dl (70-99)
--- NOTE | 2024-12-31 14:36 | CM ---
Patient seen at bedside with physicians on . Patient states that he has no needs at this time and plan is to return home with family/. Patient lives in a 2 story home with PCP in [place] Dr. Torres and he uses the [facility] on [address] in
[place]. Patient is OBS and CM completed OBS/GUERRA form with patient. Plan is for discharge home today with no needs. CM will continue to follow for discharge planinng needs.
Plan; home with no needs at this time
[2024-12-31 14:58] VITALS: BP 128/76
--- NOTE | 2024-12-31 15:41 | W.DCSUMMARY ---
Addendum entered and electronically signed by Jacklyn Treviño MD 12/31/24 16:14:
Read, reviewed, and agree. See same day progress note for additional details. Time spent coordinating care, DC planning, review of DC plan of care with resident, transition of care, review of records in EMR, med rec, consults, notes, d/w
consultants, nursing, family, and CM= 25 minutes
Original Note:
Discharge Summary
Discharge Data
Date of Admission: 12/30/24
Date of Discharge: 12/31/24
-
Pending Results: No
Hospital Course
Primary diagnosis:
Migraine with aura
Secondary Diagnosis:
HTN
Gout
HLD
DMII
Hospital Course:
74-year-old male with past medical history of hypertension, MGUS, type 2 diabetes, BPH, chronic prostatitis, hyperlipidemia, left nephrolithiasis, gout presented to the ED with facial numbness, left eye blurry vision, left arm weakness while
shopping. Workup for vascular event including noncontrast head CT, head and neck CTA, brain MRI, brain CT perfusion was done and imaging inconclusive for acute etiology. Neurology suspects that the underlying cause is migraine with aura versus
less likely TIA.
Today, patient is stable for discharge. Discharge with Plavix for 21 days (finish 01/19/25), Aspirin 81 indefinitely and prochlorperazine 10 mg as needed for head discomfort. Recommendation is to follow-up with neurology outpatient.
Imaging:
Head CT 12/30/24 - No acute intracranial abnormality.
Head/Neck CTA 12/30/24
1. No acute findings. No large vessel occlusions or dissections appreciated.
2. Moderate atherosclerotic disease within both carotid bulbs and proximal ICAs. Any stenosis is less than 50%.
3. Additional findings above.
Brain MRI 12/30/24
IMPRESSION:
No evidence of acute intracranial abnormality.
Small focus of CSF signal intensity in the superior aspect of the left cerebellar hemisphere, likely representing a focus of old infarction.
Mild diffuse atrophy.
Mild to moderate T2 and FLAIR white matter hyperintensities, commonly seen with aging and usually attributed to small vessel ischemic disease. These have not been shown to correlate with a focal neurologic deficit.
Paranasal sinus disease as described.
Discharge Plan
-
Patient Disposition: Home (Routine Discharge)
Discharge Diagnosis/Procedures: Migraine with Aura
Condition: Good
Diet: As tolerated
Activity: As tolerated
Driving Restrictions: No driving for 24 hours
Bathing Restrictions: None
Referrals:
Lang Barboza MD [Active, Neurology] - in two to three weeks
Kya Monique DO [Family Provider, Family Practice] - in less than 1 week
Additional Discharge Medication Instructions: Take plavix until 01/19/25. Continue aspirin indefinitely. Take 10mg prochlorperazine if feelings of head discomfort return. If they persist, reach out to primary care doctor. If head and left arm
discomfort does not resolve in 72 hours, call the neurology office.
Prescriptions:
New
clopidogrel [Plavix] 75 mg tablet
75 mg PO DAILY Qty: 20 0RF
prochlorperazine maleate [Compazine] 10 mg tablet
10 mg PO PRN MDD maximum 30mg a day PRN (Reason: Take 1 tablet for head discomfort ) Qty: 14 0RF
Continued
atorvastatin 20 mg tablet
20 mg PO HS
allopurinol 100 mg tablet
100 mg PO DAILY
amlodipine 10 mg tablet
10 mg PO DAILY
aspirin 81 mg Tablet,Chewable
81 mg PO DAILY
colchicine 0.6 mg tablet
0.6 mg PO DAILYPRN PRN (Reason: gout flare)
metformin 500 mg tablet extended release 24 hr
500 mg PO BID
ramipril 10 mg capsule
10 mg PO DAILY
Discharge Orders:
Discharge Patient (As Directed); Ordered 12/31/24
Ordered By: Emelyn Price
Discharge Date and Time
Discharge Date/Time: 12/31/24 15:19
Print Language: GERMAN
== END 2024-12-31 15:19 | disposition home or self-care (01) ==
LOC: 3 WEST ACU 12:55
PROVIDERS: Registered Nurse; ADMITTING PHYSICIAN Student in an Organized Health Care Education/Training Program; ATTENDING PHYSICIAN Internal Medicine; CONSULT PHYSICIAN Psychiatry & Neurology Neurology; EMERGENCY PHYSICIAN Emergency Medicine; FAMILY PHYSICIAN Student in an Organized Health Care Education/Training Program
DX: G43.109 Migraine with aura, not intractable, without status migrainosus (principal); N40.0 Benign prostatic hyperplasia without lower urinary tract symptoms; I10 Essential (primary) hypertension; E11.36 Type 2 diabetes mellitus with diabetic cataract; E78.5 Hyperlipidemia, unspecified; M10.9 Gout, unspecified; D47.2 Monoclonal gammopathy; G89.29 Other chronic pain; Z79.82 Long term (current) use of aspirin; Z79.84 Long term (current) use of oral hypoglycemic drugs; Z79.899 Other long term (current) drug therapy; Z82.3 Family history of stroke; Z87.891 Personal history of nicotine dependence; Z86.73 Personal history of transient ischemic attack (TIA), and cerebral infarction without residual deficits
CPT/HCPCS: 0042T; 70450; 70496; 70498; 70551; 80053; 80061; 82607; 82728; 82746; 82962; 83036; 84443; 84484; 85025; 85610; 85652; 85730; 92610; 93005; 93306; 97166; 99285; G0378; Q9967

== ENCOUNTER → 2025-02-04 07:20 | Outpatient (REF) | payer MEDICARE, SELFPAY ==
[2025-02-04 08:59] LABS: Hematocrit 40.1 % (39.0-52.0); Hemoglobin 14.7 g/dL (13.0-18.0); Mean Corp Hgb Conc. 36.7 g/dL (33.0-37.0); Mean Corpuscular Volume 91.3 fL (80.0-94.0); Nucleated Red Blood Cells % 0 % (-); Platelet Count 214 10^3/uL (130-400); Red Cell Dist. Width 12.8 % (11.5-14.5)
[2025-02-04 09:23] LABS: ALT (SGPT) 16 U/L (0-50); AST (SGOT) 21 U/L (17-59); Albumin 4.6 g/dl (3.5-5.0); Alkaline Phosphatase 93 U/L (38-126); Blood Urea Nitrogen 22 mg/dl (9-20); Calcium 9.4 mg/dl (8.4-10.2); Carbon Dioxide 25 mmol/L (22-30); Chloride 106 mmol/L (98-107); Glucose 123 mg/dl (70-99); HDL Cholesterol 49 mg/dl; LDL Cholesterol, Calculated 78 mg/dl; Potassium 4.8 mmol/L (3.5-5.1); Sodium 139 mmol/L (135-145); Total Protein 7.5 g/dl (6.3-8.2); Very Low Density Lipoprotein 16 mg/dl (0-30); eGFR > 60.00
[2025-02-04 09:28] LABS: Microalb - Urine Creatinine 106.500 mg/dl
[2025-02-04 09:32] LABS: Microalbumin, Random Urine 0.8 mg/dl (0.6-1.7)
[2025-02-04 10:38] LABS: Glycohemoglobin (HgbA1c) 6.7 % (4.0-5.6)
== END ==
LOC: REG 07:20
PROVIDERS: ATTENDING PHYSICIAN Student in an Organized Health Care Education/Training Program; REFERRING PHYSICIAN Internal Medicine Cardiovascular Disease
DX: E11.59 Type 2 diabetes mellitus with other circulatory complications (principal)
CPT/HCPCS: 36415; 80053; 80061; 82043; 82570; 83036; 85025

== ENCOUNTER → 2025-05-06 07:17 | Outpatient (REF) | payer MEDICARE, SELFPAY ==
[2025-05-06 08:03] LABS: Hematocrit 42.8 % (39.0-52.0); Hemoglobin 15.0 g/dL (13.0-18.0); Mean Corp Hgb Conc. 35.0 g/dL (33.0-37.0); Mean Corpuscular Volume 95.5 fL (80.0-94.0); Nucleated Red Blood Cells % 0 % (-); Platelet Count 200 10^3/uL (130-400); Red Cell Dist. Width 12.7 % (11.5-14.5)
[2025-05-06 08:22] LABS: ALT (SGPT) 23 U/L (0-50); AST (SGOT) 25 U/L (17-59); Albumin 4.7 g/dl (3.5-5.0); Alkaline Phosphatase 95 U/L (38-126); Blood Urea Nitrogen 16 mg/dl (9-20); Calcium 9.5 mg/dl (8.4-10.2); Carbon Dioxide 29 mmol/L (22-30); Chloride 103 mmol/L (98-107); Glucose 119 mg/dl (70-99); Potassium 5.1 mmol/L (3.5-5.1); Sodium 139 mmol/L (135-145); Total Protein 7.4 g/dl (6.3-8.2); eGFR > 60.00
== END ==
LOC: REG 07:17
PROVIDERS: ATTENDING PHYSICIAN Internal Medicine Hematology & Oncology; FAMILY PHYSICIAN Student in an Organized Health Care Education/Training Program; REFERRING PHYSICIAN Internal Medicine Cardiovascular Disease
DX: D47.2 Monoclonal gammopathy (principal)
CPT/HCPCS: 36415; 80053; 82232; 82784; 83521; 84155; 84165; 85025; 86334